=== PATIENT | male | born 1960 | race Hispanic/Latino ===

== ENCOUNTER 2017-04-26 11:47 | Inpatient (IN) | payer MEDICARE, OTHER ==
[2017-04-26] MEDS ORDERED: NACL BACTERIOSTATIC INFILTRATI ONE (13:55)
--- NOTE | 2017-04-26 14:41 | Anesthesia Day of Surgery ---
Anesthesia Day of Surgery - Day of Surgery Patient Examined: Yes Patient H&P Reviewed: Yes Patient is NPO: Yes
--- NOTE | 2017-04-26 14:41 | Anesthesia Consultation ---
Anesthesia Consult and Med Hx Date of service: 04/26/17 - Airway Anesthetic Teeth Evaluation: Poor ROM Head & Neck: Adequate Mental/Hyoid Distance: Adequate Mallampati Class: Class II Intubation Access Assessment: Probably Good - Pulmonary Exam CTA: Yes - Cardiac Exam Cardiac Exam: RRR - Pre-Operative Health Status ASA Pre-Surgery Classification: ASA3 Proposed Anesthetic Plan: General - Pulmonary Hx Smoking: No Hx Asthma: No COPD: Yes Hx Pneumonia: Yes (HOSPITALIZED IN 2013 AND 2014 FOR PNEUMONIA) Hx Sleep Apnea: No (PIOTR PRE SCREEN LOW RISK) - Cardiovascular System Hx Hypertension: No - Central Nervous System Hx Neuromuscular Disorder: Yes (cerebral palsy, severe contractures) Hx Seizures: Yes (NO MEDS AT PRESENT) Hx Psychiatric Problems: Yes - Endocrine Hx End Stage Renal Disease: No - Other Systems Hx Cancer: No
[2017-04-26] MEDS ORDERED: NACL 0.9% 1000 ML 1,000 ML ONE ×2 (14:46→16:46)
[2017-04-26] MEDS ORDERED: NACL 0.9% 1000 ML 1,000 ML IV SCH (15:00)
[2017-04-26] MEDS ORDERED: ANCEF/STERILE WATER 2 GM/20 ML IV NR (15:00)
[2017-04-26] MEDS ORDERED: XYLOCAINE MPF 2% ONE (15:27)
[2017-04-26] MEDS ORDERED: DIPRIVAN 10 MG/ML IV ONE (15:27)
[2017-04-26] MEDS ORDERED: DILAUDID ONE (15:29)
[2017-04-26] MEDS ORDERED: ePHEDrine SULFATE ONE ×2 (15:45→16:20)
[2017-04-26] MEDS ORDERED: WATER FOR IRRIG STERILE IR ONE (16:00)
[2017-04-26] MEDS ORDERED: OMNIPAQUE (300 MG) IR ONE (16:00)
[2017-04-26] MEDS ORDERED: ZOFRAN ONE (16:51)
--- NOTE | 2017-04-26 17:13 | Post Operative Note ---
Date of procedure: 04/26/17 Pre-op diagnosis: 1. Rt Renal Stones 2. Robin [place] 3. Lt Renal obstruction, pyonephrosis 4. NG Post-op diagnosis: same Findings: left hydro poor drain, rt hydro draining rt stones, trabec, eyrthema, bladder debris Procedure: Cystogram, robin rpg, robin stent L 6x26 R 6x24, bladder bx, cystogram Anesthesia: GETA Surgeon: IGGY HODGES Estimated blood loss: minimal Pathology: list (bl bx x3) Specimen disposition: to lab Condition: stable Disposition: PACU
[2017-04-26] MEDS ORDERED: TORADOL ONE (17:27)
[2017-04-26] MEDS ORDERED: DILAUDID IV PRN (17:28)
[2017-04-26] MEDS ORDERED: TORADOL IV PRN (17:28)
[2017-04-26] MEDS ORDERED: ZOFRAN IV PRN (17:28)
--- NOTE | 2017-04-26 17:47 | Post Anesthesia Evaluation ---
- Post Anesthesia Evaluation Patient Participated: Yes Airway Patent: Yes Stable Respiratory Function: Yes Nausea/Vomiting: No Temp > 96.8F: Yes Pain Manageable: Yes Adequeate Hydration: Yes Anesthesia Complications: No Block Receding Appropriately: Not Applicable Patient on Ventilator: No
[2017-04-26 18:03] LABS: Basophils % (Auto) 1.1 % (0.0-1.8); Eosinophils % (Auto) 4.6 % (0.0-4.3); Hematocrit 33.1 % (35.5-45.6); Hemoglobin 10.8 gm/dl (11.8-15.2); Mean Corpuscular HGB Conc 33 % (32-34); Mean Corpuscular Hemoglobin 30 pg (28-32); Mean Corpuscular Volume 91 fl (84-94); Platelet Count 186 K/mm3 (140-440); Red Blood Count 3.64 M/mm3 (3.65-5.03); Red Cell Distribution Width 15.1 % (13.2-15.2)
[2017-04-26 18:16] LABS: Anion Gap 16 mmol/L; Blood Urea Nitrogen 23 mg/dL (9-20); Calcium 8.4 mg/dL (8.4-10.2); Carbon Dioxide 24 mmol/L (22-30); Chloride 106.7 mmol/L (98-107); Glucose 116 mg/dL (75-100); Potassium 3.9 mmol/L (3.6-5.0); Sodium 143 mmol/L (137-145)
[2017-04-26] MEDS ORDERED: NORCO 5/325 PO PRN (18:44)
[2017-04-26] MEDS ORDERED: ceFAZolin 1 GM in NACL 0.9% 100 ML IV ONE (18:44)
[2017-04-26] MEDS ORDERED: LACTATED RINGERS 1,000 ML ONE (19:12)
[2017-04-26] MEDS ORDERED: LACTATED RINGERS 1,000 ML IV SCH (19:30)
[2017-04-26] MEDS ORDERED: ANCEF/NS 1 GM/50 ML 1 GM/50 ML BAG IV ONE (23:00)
--- NOTE | 2017-04-27 00:13 | Consultation ---
History of Present Illness - Reason for Consult Consult date: 04/27/17 Medical management Requesting physician: IGGY HODGES - History of Present Illness 56 y/o male with robin RPG Robin stent for bilateral renal stones and Hydronrphrosis admitted for L Pyoneohrosis and Abx therapy.Post op doing well. Patient also had bladder biopsy and cystogram. Past History Past Medical History: other (Allergic Rhinitis Depression) Past Surgical History: Other (Robin RPG with stent placement) Social history: lives with family, smoking Family history: hypertension Medications and Allergies Allergies Allergy/AdvReac Type Severity Reaction Status Date / Time corn Allergy Diarrhea Verified 06/20/15 21:45 grape Allergy Unknown Verified 06/20/15 21:45 coconuts Allergy Diarrhea Uncoded 06/20/15 21:45 nuts Allergy Diarrhea Uncoded 06/20/15 21:45 raisins Allergy Diarrhea Uncoded 06/20/15 21:45 Home Medications Medication Instructions Recorded Confirmed Last Taken Type FLUoxetine [PROzac] 10 mg PO QDAY 10/27/14 04/18/17 04/26/17 07:15 History Fluticasone [Flonase] 2 spray NS QDAY 10/27/14 04/18/17 04/26/17 07:15 History [place]-3 Fatty Acids/Fish Oil [Fish 3 each PO DAILY 10/27/14 04/18/17 04/26/17 07 :15 History Oil 1,000 mg Softgel] Thioridazine [Mellaril] 100 mg PO TID 10/27/14 04/18/17 04/26/17 07:15 History Replesta 1 dose PO QMONTH 04/18/17 04/18/17 04/26/17 07:15 History Cefuroxime Axetil [Ceftin] 500 mg PO Q12H 04/26/17 04/26/17 04/26/17 05:15 History Fexofenadine HCl 180 mg PO QDAY 04/26/17 04/26/17 04/26/17 07:15 History Active Meds: Active Medications Acetaminophen/Hydrocodone Bitart ([place]iza 5/325) 1 each PO Q4H PRN PRN Reason: Pain, Moderate (4-6) Cefazolin Sodium (Ancef/Sterile Water 2 Gm/20 Ml) 2 gm IV PREOP NR Stop: 04/27/17 14:59 Fluticasone Propionate (Flonase) 50 mcg NS QDAY ARELY Sodium Chloride (Nacl 0.9% 1000 Ml) 1,000 mls @ 100 mls/hr IV DIRECT ARELY Last Admin: 04/26/17 14:51 Dose: 100 mls/hr Lactated Ringer's (Lactated Ringers) 1,000 mls @ 125 mls/hr IV DIRECT ARELY Last Admin: 04/26/17 23:00 Dose: 125 mls/hr Miscellaneous Medication (Fexofenadine Hcl [Fexofenadine Hcl]) 180 mg PO QDAY AREYL Thioridazine HCl (Mellaril) 100 mg PO TID ARELY Review of Systems All systems: negative Exam - Constitutional Vitals: Temp Pulse Resp BP Pulse Ox 98.2 F 83 18 107/55 95 04/26/17 20:21 04/26/17 20:21 04/26/17 20:21 04/26/17 20:21 04/26/17 20:21 General appearance: Present: no acute distress, well-nourished - EENT Eyes: Present: PERRL ENT: hearing intact, clear oral mucosa - Neck Neck: Present: supple, normal ROM - Respiratory Respiratory effort: normal Respiratory: bilateral: CTA - Cardiovascular Heart Sounds: Present: S1 & S2. Absent: rub, click - Extremities Extremities: pulses symmetrical, No edema Peripheral Pulses: within normal limits - Abdominal General gastrointestinal: Present: soft, non-tender, non-distended, normal bowel sounds Male genitourinary: Present: normal - Integumentary Integumentary: Present: clear, warm, dry - Musculoskeletal Musculoskeletal: gait normal, strength equal bilaterally - Psychiatric Psychiatric: appropriate mood/affect, intact judgment & insight - Neurologic Neurologic: CNII-XII intact, moves all extremities Results - Labs CBC & Chem 7: 04/26/17 17:40 04/26/17 17:40 Labs: Abnormal lab results 04/26/17 04/26/17 Range/Units 17:40 17:40 RBC 3.64 L (3.65-5.03) M/mm3 Hgb 10.8 L (11.8-15.2) gm/dl Hct 33.1 L (35.5-45.6) % Lymph % (Auto) 39.1 H (13.4-35.0) % [place] % (Auto) 14.6 H (0.0-7.3) % Eos % (Auto) 4.6 H (0.0-4.3) % BUN 23 H (9-20) mg/dL Glucose 116 H (75-100) mg/dL Assessment and Plan - Patient Problems (1) Acute pyonephrosis Current Visit: Yes Status: Acute Plan to address problem: IV abx for now pending cultures (2) Allergic rhinitis Current Visit: Yes Status: Chronic Qualifiers: Chronicity: chronic Allergic rhinitis trigger: A Allergic rhinitis seasonality: A Plan to address problem: Cont Fexofenadine and Fluticasone (3) Depression Current Visit: Yes Status: Chronic Qualifiers: Depression Type: unspecified Major depression recurrence: M Active/ Remission status: A Major depression episode severity: M Psychotic features : P Trimester: T Qualified Code(s): F32.9 - Major depressive disorder, single episode, unspecified Plan to address problem: Cont Fluoxerine and Melleril (4) DVT prophylaxis Current Visit: Yes Status: Acute Plan to address problem: Lovenox 40 mg SQ qd
--- NOTE | 2017-04-27 08:25 | Admit Criteria Form ---
Admission Criteria Documentation: UROLOGIC DISEASE G Clinical Indications for Admission to Inpatient Care (Place ' X' for any and all applicable criteria): Hospital admission is needed for appropriate care of the patient because of 1 or more of the following: [ ]I. New-onset Reduced urine output, or hydronephrosis remaining after emergency or observation level care (as appropriate ) [ ]II. Renal disease needing inpatient care indicated by 1 or more of the following(2)(3)(4): [ ]a) Acute renal failure [ ]b) Significant uremic complications [ ]c) Acute kidney injury (that does not qualify as Acute renal failure ) requiring inpatient care indicated by ALL of the following(5)(6)(7)(8) (9): [ ]i) Worsening clinical status (eg, rising creatinine) despite outpatient and observation care treatment (eg, hydration) [ ]ii) Acute kidney injury indicated by 1 or more of the following: [ ]1) 2-fold or more rise in serum creatinine from baseline [ ]2) Reduction of more than 50% in estimated glomerular filtration rate from baseline [ ]3) Urine output less than 0.5 mL/kg/hr for 12 hours despite adequate volume status [ ]d) Systemic cause (eg, Goodpasture syndrome ) needing inpatient care [ ]e) Rapidly progressive renal disease needing inpatient care (eg, plasmapheresis, immunosuppression ) Anasarca needing inpatient care [ ]f) Hemoptysis [ ]g) Hemolysis, thrombosis, or infraction [ ]h) Anasarca needing inpatient care [ ]III. New-onset or uncontrolled nephrogenic diabetes insipidus [ ]IV. Urologic infection requiring inpatient care as indicated by 1 or more of the following(10)(11)(12): [ ]a) Hemodynamic instability [ ]b) Dehydration that is severe or persistent [ ]c) Failure of outpatient treatment [ ]d) Viktoriya's gangrene [ ]e) Urinary obstruction [ ]f) Immunocompromised state (eg, chronic steroid use ) [ ]g) Known renal or urologic abnormalities(eg, indwelling catheter, structural abnormalities ) [ ]h) Recent urologic manipulation or procedure Urinary obstruction [ ]i) Abscess requiring drainage Immunocompromised state [ ]V. Acute urinary retention requiring inpatient management as indicated by ANY ONE of the following(1)(13): [ ]a) Retention cannot be alleviated via emergency or observation level care (eg, urinary catheter placement) [ ]b) Hemodynamic instability [ ]c) Acute neurologic etiology (eg, cauda equina) [ ]d) Dehydration or other complications not manageable with emergency or observation level care [ ]e) Acute kidney injury (that does not qualify as Acute renal failure ) requiring inpatient care indicated by ALL of the following(5)(6)(7)(8) (9): [ ]i) Acute kidney injury indicated by ANY ONE of the following: [ ]1) 2-fold or more rise in serum creatinine from baseline [ ]2) Reduction of more than 50% in estimated glomerular filtration rate from baseline [ ]ii) Worsening clinical status (eg, rising creatinine) despite outpatient and observation care treatment (eg, hydration) [ ]. Gross hematuria requiring inpatient management as indicated by ANY ONE of the following(1)(2): [ ]a) Evidence of renal obstruction [ ]b) Reduced urine output [ ]c) Clot retention after urinary catheterization and irrigation [ ]d) Severe Anemia [ ]e) Systemic cause needing inpatient treatment (eg, Goodpasture syndrome) [ ]VII. Priapism not responsive to emergency or observation care treatment [ ]VII. Scrotal, testicular, or epididymal disorder requiring inpatient care indicated by 1 or more of the following(1)(14)(15)(16): [ ]a) Scrotal edema or infection not manageable with emergency or observation level care [ ]b) Orchitis not manageable with emergency or observation level care [ ]c) Epididymitis not manageable with emergency or observation level of care [ ]d) Other scrotal, testicular, or epididymal disorder (eg, infection, inflammation) not manageable with emergency or observation level care [ ]IX. Complications of transplanted kidney indicated by 1 or more of the following [ ]a) Acute graft rejection requiring inpatient management (eg, intravenous immunosuppression) [ ]b) Acute kidney injury indicated by ALL of the following i) Acute kidney injury indicated by 1 or more of the following 1) 2-fold or more rise in serum creatinine from baseline 2) Reduction of more than 50% in estimated glomerular filtration rate from baseline 3) Urine output less than 0.5 mL/kg/hr for 12 hours despite adequate volume status ii) Kidney injury too severe or not responsive to outpatient and observation care treatment (eg, hydration) [ ]c) Infection requiring inpatient management (eg, Hemodynamic instability, need for intravenous antimicrobial treatment) [ ]d) Other complication of transplanted kidney requiring patient management (eg, severe diarrhea leading to malabsorption) [ ]X. Trauma to renal, genital, or urologic system requiring inpatient medical care [X ]XI. Urologic Disease condition, symptom, or finding for which emergency and observation care have failed or are not considered appropriate. The original [employer] content created by [employer] has been revised. The portions of the content which have been revised are identified through the use of italic text or in bold, and [facility] has neither reviewed nor approved the modified material. All other unmodified content is copyright [facility] [employer]. Please see references footnoted in the original [facility] [employer] edition 2016 Admission Criteria Met: Yes
[2017-04-27] MEDS ORDERED: NON-FORMULARY (Fexofenadine Hcl [Fexofenadine Hcl] 180 MG) PO SCH (10:00)
--- NOTE | 2017-04-27 10:57 | Fluoroscopy Report ---
FLUOROSCOPY RETROGRADE UROGRAPHY FLUOROSCOPY CYSTOGRAM STATIC, ONE VIEW History: Bilateral hydronephrosis, right renal stone. Findings: Fluoroscopy was provided by radiology during retrograde urography by urology. 16 fluoroscopic images were captured. Retrograde pyelogram images demonstrate mild to moderate bilateral hydronephrosis. Subsequent images demonstrate placement of bilateral ureteral stents which adequately drain the renal collecting systems. Single view of the bladder was also obtained after infusion of contrast agent. There is mild bladder wall trabeculation but no obvious mass or filling defect. Impression: Bilateral hydronephrosis with subsequent bilateral ureteral stent placement. Mild bladder trabeculation. Please correlate with the procedural report by Dr. Salmeron.
[2017-04-27] MEDS: FLONASE NS SCH (11:13)
[2017-04-27] MEDS: MELLARIL PO SCH ×3 (11:33→19:48)
[2017-04-28] MEDS: FLONASE NS SCH (09:36)
[2017-04-28] MEDS: MELLARIL PO SCH ×3 (09:38→14:18)
[2017-04-28] MEDS ORDERED: CLARITIN PO SCH (13:00)
--- NOTE | 2017-04-28 13:57 | Progress Note ---
Assessment and Plan - Patient Problems (1) Acute pyonephrosis Current Visit: Yes Status: Acute Plan to address problem: IV abx for now pending cultures (2) Allergic rhinitis Current Visit: Yes Status: Chronic Qualifiers: Chronicity: chronic Allergic rhinitis trigger: A Allergic rhinitis seasonality: A Plan to address problem: Cont Fexofenadine and Fluticasone (3) Depression Current Visit: Yes Status: Chronic Qualifiers: Depression Type: unspecified Major depression recurrence: M Active/ Remission status: A Major depression episode severity: M Psychotic features : P Trimester: T Qualified Code(s): F32.9 - Major depressive disorder, single episode, unspecified Plan to address problem: Cont Fluoxerine and Melleril (4) DVT prophylaxis Current Visit: Yes Status: Acute Plan to address problem: Lovenox 40 mg SQ qd History Interval history: Doing better Hospitalist Physical - Constitutional Vitals: Temp Pulse Resp BP Pulse Ox 99.4 F 72 18 109/61 98 04/28/17 08:00 04/28/17 08:00 04/28/17 08:00 04/28/17 08:00 04/28/17 08:00 General appearance: Present: no acute distress, well-nourished - EENT Eyes: Present: PERRL, EOM intact - Neck Neck: Present: supple, normal ROM - Respiratory Respiratory: bilateral: CTA - Cardiovascular Heart rate: 76 Rhythm: regular - Extremities Extremities: no ischemia, pulses intact, pulses symmetrical - Abdominal General gastrointestinal: soft, non-tender, non-distended - Integumentary Integumentary: Present: clear, warm, dry - Psychiatric Psychiatric: appropriate mood/affect, cooperative - Neurologic Neurologic: CNII-XII intact, moves all extremities - Allied Health Allied health notes reviewed: nursing, case management Results - Labs CBC & Chem 7: 04/26/17 17:40 04/26/17 17:40 Labs: Laboratory Last Values WBC 5.0 K/mm3 (4.5-11.0) 04/26/17 17:40 RBC 3.64 M/mm3 (3.65-5.03) L 04/26/17 17:40 Hgb 10.8 gm/dl (11.8-15.2) L 04/26/17 17:40 Hct 33.1 % (35.5-45.6) L 04/26/17 17:40 MCV 91 fl (84-94) 04/26/17 17:40 MCH 30 pg (28-32) 04/26/17 17:40 MCHC 33 % (32-34) 04/26/17 17:40 RDW 15.1 % (13.2-15.2) 04/26/17 17:40 Plt Count 186 K/mm3 (140-440) 04/26/17 17:40 Lymph % (Auto) 39.1 % (13.4-35.0) H 04/26/17 17:40 [place] % (Auto) 14.6 % (0.0-7.3) H 04/26/17 17:40 Eos % (Auto) 4.6 % (0.0-4.3) H 04/26/17 17:40 Baso % (Auto) 1.1 % (0.0-1.8) 04/26/17 17:40 Lymph # 1.9 K/mm3 (1.2-5.4) 04/26/17 17:40 [place] # 0.7 K/mm3 (0.0-0.8) 04/26/17 17:40 Eos # 0.2 K/mm3 (0.0-0.4) 04/26/17 17:40 Baso # 0.1 K/mm3 (0.0-0.1) 04/26/17 17:40 Seg Neutrophils % 40.6 % (40.0-70.0) 04/26/17 17:40 Seg Neutrophils # 2.0 K/mm3 (1.8-7.7) 04/26/17 17:40 Sodium 143 mmol/L (137-145) 04/26/17 17:40 Potassium 3.9 mmol/L (3.6-5.0) 04/26/17 17:40 Chloride 106.7 mmol/L (98-107) 04/26/17 17:40 Carbon Dioxide 24 mmol/L (22-30) 04/26/17 17:40 Anion Gap 16 mmol/L 04/26/17 17:40 BUN 23 mg/dL (9-20) H 04/26/17 17:40 Creatinine 1.0 mg/dL (0.8-1.5) 04/26/17 17:40 Estimated GFR > 60 ml/min 04/26/17 17:40 BUN/Creatinine Ratio 23.00 % 04/26/17 17:40 Glucose 116 mg/dL (75-100) H 04/26/17 17:40 Calcium 8.4 mg/dL (8.4-10.2) 04/26/17 17:40
[2017-04-28] MEDS ORDERED: ROCEPHIN/NS 2 GM/100 ML 2 GM/100 ML BAG IV SCH (14:00)
[2017-04-28] MEDS ORDERED: ROCEPHIN/NS 1 GM/50 ML 1 GM/50 ML BAG IV SCH (15:00)
--- NOTE | 2017-04-28 16:03 | Event Note ---
Date: 04/28/17 S: pt void Gen nad abd soft I/P: [facility]ad[facility] abn / Rad Lt [place] Infect hydro Robin Renal stones Lt [place] / ost - admitted due risk of fever after proc w/ manip and pt limited ability to communicate signs / sxs of infec - afebrile - D/C planning back to [facility] home next 24 hrs if ok; if Ok w/ Med
[2017-04-28] MEDS ORDERED: XYLOCAINE 1% MPF 5 mL INFILTRATI ONE (16:06)
[2017-04-28] MEDS ORDERED: ROCEPHIN IM ONE (16:10)
[2017-04-28 17:30] VITALS: BP 118/71
--- NOTE | 2017-04-28 19:59 | Event Note ---
Date: 04/28/17
== END 2017-04-28 21:24 | disposition home or self-care (01) | DRG 669 ==
LOC: OR 11:47 → 2B-SURG 18:30 → OBSVTOIN 04-28 10:40
PROVIDERS: ADMIT Urology; ATTEND Urology
PROC: 0T788DZ Dilation of Bilateral Ureters with Intraluminal Device, Via Natural or Artificial Opening Endoscopic (ICD-10-PCS; principal; 2017-04-26)
PROC: 0TBB8ZX Excision of Bladder, Via Natural or Artificial Opening Endoscopic, Diagnostic (ICD-10-PCS; 2017-04-26)
DX: N13.6 Pyonephrosis (principal); N20.2 Calculus of kidney with calculus of ureter; J44.9 Chronic obstructive pulmonary disease, unspecified; G80.9 Cerebral palsy, unspecified; R56.9 Unspecified convulsions; J30.89 Other allergic rhinitis; F32.9 Major depressive disorder, single episode, unspecified; Z82.49 Family history of ischemic heart disease and other diseases of the circulatory system; Z91.018 Allergy to other foods; Z91.048 Other nonmedicinal substance allergy status; Z79.899 Other long term (current) drug therapy
CPT/HCPCS: 36415; 74420; 74430; 80048; 85025; 88305; A4217; C1758; C1769; C2617; G0378; G8978-GP; G8979-GP; J0690; J0696; J1170; J1885; J2405; J2704; J7030; J7120; Q9967

== ENCOUNTER 2017-06-02 07:40 | Day surgery (SDC) | payer MEDICARE, OTHER ==
[2017-06-02] MEDS ORDERED: ZOFRAN ONE (10:07)
[2017-06-02] MEDS ORDERED: DECADRON ONE (10:07)
[2017-06-02] MEDS ORDERED: DIPRIVAN 10 MG/ML IV ONE (10:07)
[2017-06-02] MEDS ORDERED: XYLOCAINE MPF 2% ONE (10:07)
--- NOTE | 2017-06-02 10:12 | Short Stay Summary ---
Short Stay Documentation Date of service: 06/02/17 - History H&P: obtained from office - Allergies and Medications Current Medications: Allergies corn Allergy (Verified 05/24/17 09:54) Diarrhea INCLUDING GRITS. grape Allergy (Verified 06/20/15 21:45) Unknown coconuts Allergy (Uncoded 06/20/15 21:45) Diarrhea nuts Allergy (Uncoded 05/24/17 09:54) Diarrhea INCLUDING PEANUT BUTTER raisins Allergy (Uncoded 06/20/15 21:45) Diarrhea Home Medications Medication Instructions Recorded Confirmed Last Taken Type FLUoxetine [PROzac] 40 mg PO QDAY 10/27/14 06/02/17 06/01/17 History Fluticasone [Flonase] 2 spray NS QDAY 10/27/14 06/02/17 06/01/17 History [place]-3 Fatty Acids/Fish Oil [Fish 1,000 mg PO DAILY 10/27/14 06/02/17 06/01/17 History Oil 1,000 mg Softgel] Thioridazine [Mellaril] 100 mg PO BID 10/27/14 06/02/17 06/01/17 History Replesta 1 dose PO QWEEK 04/18/17 06/02/17 05/29/17 History Fexofenadine HCl 180 mg PO QDAY 04/26/17 06/02/17 06/01/17 History - Brief post op/procedure progress note Date of procedure: 06/02/17 Pre-op diagnosis: rt renal stones upper mid and lower Post-op diagnosis: same Procedure: right renal eswl of the renal pelvis stone, staged for future ESWL Anesthesia: GETA Findings: good vis, central, decednt frag Surgeon: IGGY HODGES Estimated blood loss: none Pathology: none Condition: stable - Hospital course Hospital course: or pacu home - Disposition Condition at discharge: Good Disposition: DC-01 TO HOME OR SELFCARE Short Stay Discharge Plan Activity: advance as tolerated Diet: advance as tolerated Follow up with: IGGY HODGES MD [Staff Physician] - 7 Days
[2017-06-02] MEDS ORDERED: NACL BACTERIOSTATIC INFILTRATI ONE (10:17)
--- NOTE | 2017-06-02 10:17 | Anesthesia Consultation ---
Anesthesia Consult and Med Hx Date of service: 06/02/17 - Airway Anesthetic Teeth Evaluation: Poor ROM Head & Neck: Adequate Mental/Hyoid Distance: Adequate Mallampati Class: Class III Intubation Access Assessment: Probably Good - Pulmonary Exam CTA: Yes - Cardiac Exam Cardiac Exam: RRR - Pre-Operative Health Status ASA Pre-Surgery Classification: ASA3 Proposed Anesthetic Plan: General - Pulmonary Hx Smoking: No Hx Asthma: No Hx Respiratory Symptoms: No SOB: No COPD: Yes Home Oxygen Therapy: No Hx Pneumonia: Yes (HOSPITALIZED IN 2013 AND 2014 FOR PNEUMONIA) Hx Sleep Apnea: No (PIOTR PRE SCREEN LOW RISK) - Cardiovascular System Hx Hypertension: No Hx Coronary Artery Disease: No Hx Heart Attack/AMI: No Hx Angina: No - Central Nervous System Hx Neuromuscular Disorder: Yes (cerebral palsy, severe contractures) Hx Seizures: Yes (NO MEDS AT PRESENT) Hx Psychiatric Problems: Yes - Endocrine Hx Renal Disease: Yes (kidney stones) Hx End Stage Renal Disease: No Hx Cirrhosis: No Hx Liver Disease: No Hx Insulin Dependent Diabetes: No Hx Non-Insulin Dependent Diabetes: No Hx Thyroid Disease: No Hx Hypothyroidism: No Hx Hyperthyroidism: No - Hematic Hx Anemia: Yes - Other Systems Hx Alcohol Use: No Hx Substance Use: No Hx Cancer: No
[2017-06-02] MEDS ORDERED: ePHEDrine SULFATE ONE (10:23)
[2017-06-02] MEDS ORDERED: NACL 0.9% 1000 ML 1,000 ML IV SCH (11:00)
[2017-06-02] MEDS ORDERED: ANCEF/STERILE WATER 2 GM/20 ML IV NR (11:00)
[2017-06-02] MEDS ORDERED: ROCEPHIN/NS 1 GM/50 ML 1 GM/50 ML BAG IV SCH (11:00)
[2017-06-02] MEDS ORDERED: VERSED IV NR (11:00)
--- NOTE | 2017-06-02 15:26 | Operative Report ---
PREOPERATIVE DIAGNOSES: 1. Right cerebral palsy. 2. Lower extremity contractures. 3. Right renal stones, large, multiple lower pole, upper pole and renal pelvis. 4. Bilateral left hydronephrosis and bilateral stents. POSTOPERATIVE DIAGNOSES: 1. Right cerebral palsy. 2. Lower extremity contractures. 3. Right renal stones, large, multiple lower pole, upper pole and renal pelvis. 4. Bilateral left hydronephrosis and bilateral stents. PROCEDURE: Right renal pelvis ESWL, surgery staged for future treatment of this one central large stone, additionally staged for future treatment of the other renal stones and staged for future treatment and removal of stent, expected multiple procedures. SURGEON: Joseph Salmeron MD ANESTHESIA: General. SPECIMENS: None. ESTIMATED BLOOD LOSS: Minimal. COMPLICATIONS: None. IMPLANTS: None. CLINICAL INDICATIONS: The patient and family and caretakers have been counseled about the multiple different procedures in stages, had been counseled on percutaneous nephrolithotomy, but they would be unable to manage the tube and the patient unable to tolerate or cooperate with the access. 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 Consent was obtained and the plan was, he had a large stone in the lower pole, large upper pole and a renal pelvis stone. They were separate, so even a percutaneous access may only be able to access a portion of the stone and due to the separation in the separate stones in separate areas of the kidney. It was elected due to all these complicating factors and the patient's cerebral palsy, to go ahead and try to treat the central renal pelvis stone, which is most likely to cause problems first and staged treatment for other stones in the future. This was understood and they also understood the options of open surgery, percutaneous nephrolithotomy, other surgeries and ureteroscopy and desired to proceed with this approach. DESCRIPTION OF PROCEDURE: The patient was transferred to OR suite in supine position, antibiotics, SCDs. Biplanar fluoroscopy easily targeted the central large stone in the renal pelvis. Other stones were identified in the large lower pole, upper pole. A total of 2500 shocks were delivered at a maximum of 5 kilovolts. Biplanar fluoroscopy was used to target the stone with an F2. There was decreased density at the end of the procedure and better than expected results due to the size of the stone and location by appearance at this point. At the end of the procedure, the residual as not unexpected that due to large size stone, he would likely need a staged second ESWL. The patient was awakened and transferred to PACU in good and stable condition. JOB# [id number] ATS/NTS
[2017-06-02 18:29] VITALS: BP 119/76
== END 2017-06-02 13:40 | disposition home or self-care (01) ==
LOC: OR 07:40
PROVIDERS: ATTEND Urology
DX: N13.2 Hydronephrosis with renal and ureteral calculous obstruction (principal); G80.9 Cerebral palsy, unspecified; M62.469 Contracture of muscle, unspecified lower leg; Z91.018 Allergy to other foods
CPT/HCPCS: 50590; J0696; J1100; J2250; J2405; J2704; J7030

== ENCOUNTER 2022-06-02 14:39 | Emergency (ER) | payer MEDICARE, OTHER ==
[2022-06-02] MEDS ORDERED: guaiFENesin/CODEINE 100-10MG ORAL LIQD 5 ML PO ONE (18:38)
[2022-06-02] MEDS ORDERED: IPRATROPIUM/ALBUTEROL SULFATE 3 ML AMPUL.NEB IH ONE (18:40)
--- NOTE | 2022-06-02 19:17 | XRay Report ---
CHEST 1 VIEW INDICATION / CLINICAL INFORMATION: cough. COMPARISON: 08/29/2017 FINDINGS: SUPPORT DEVICES: None. HEART / MEDIASTINUM: No significant abnormality. LUNGS / PLEURA: Elevated right hemidiaphragm. Mild patchy left-sided parenchymal disease suggestive f or pneumonia No pneumothorax. ADDITIONAL FINDINGS: No significant additional findings. IMPRESSION: 1. Probable left-sided pneumonia. Signer Name: Aaron Koroma MD Signed: 06/02/2022 7:12 PM Workstation Name: [id number]
--- NOTE | 2022-06-02 19:21 | Emergency Department Report ---
ED General Adult HPI - General Chief complaint: Upper Respiratory Infection Stated complaint: COUGH/UPPER RESP INFECTION Time Seen by Provider: 06/02/22 18:12 Source: patient, EMS Mode of arrival: Stretcher Limitations: Physical Limitation - History of Present Illness Initial comments: The patient presents to the emergency department for evaluation of a cough. Patient has cerebral palsy and has had a cough for the last couple of days. Patient denies having a fever. There is no chest pain, abdominal pain, headache. -: unknown Severity scale (0 -10): 0 Consistency: constant Improves with: none Worsens with: none Associated Symptoms: denies other symptoms Treatments Prior to Arrival: none - Related Data Home Medications Medication Instructions Recorded Confirmed Last Taken Taylor-3 Fatty Acids/Fish Oil [Fish 1,000 mg PO DAILY 10/27/14 08/30/17 06/01/17 Oil 1,000 mg Softgel] Thioridazine [Mellaril] 100 mg PO BID 10/27/14 08/30/17 06/01/17 Replesta 1 dose PO QWEEK 04/18/17 08/30/17 05/29/17 FLUoxetine HCL [PROzac] 40 mg PO DAILY 08/30/17 08/30/17 Unknown Fluticasone [Flonase] 1 puff IH PRN PRN 08/30/17 08/30/17 Unknown Loratadine [Allergy Relief] 10 mg PO DAILY 08/30/17 08/30/17 Unknown Mag Hydrox/Aluminum Hyd/Simeth 10 ml PO Q4-6H PRN 08/30/17 08/30/17 Unknown [Rosario-[place] Liquid] Magnesium Hydroxide [Milk of 30 - 60 ml PO PRN PRN 08/30/17 08/30/17 Unknown Magnesia] Ondansetron [Zofran TAB] 4 mg PO Q8HR PRN 08/30/17 08/30/17 Unknown diphenhydrAMINE [Benadryl CAP] 25 mg PO Q8HR PRN 08/30/17 08/30/17 Unknown levETIRAcetam [Levetiracetam] 500 mg PO BID 08/30/17 08/30/17 Unknown Previous Rx's Medication Instructions Recorded Last Taken Type HYDROcodone/APAP 5-325 [[place] 1 each PO Q4HR PRN #14 tablet 09/02/17 Unknown Rx 5-325 mg TAB] Tamsulosin [Flomax] 0.4 mg PO BID #60 capsule 09/02/17 Unknown Rx cephALEXin [Keflex] 500 mg PO BID #10 capsule 09/02/17 Unknown Rx Albuterol Mdi (or & Nicu Only) 2 puff IH Q4HR PRN #1 inhalation 06/02/22 Unknown Rx [ProAir HFA Inhaler] Benzonatate [Tessalon Perles] 100 mg PO Q8HR PRN #20 capsule 06/02/22 Unknown Rx Doxycycline Monohydrate 100 mg PO BID #14 capsule 06/02/22 Unknown Rx [Doxycycline Monohydrate CAP] Allergies Allergy/AdvReac Type Severity Reaction Status Date / Time corn Allergy Diarrhea Verified 06/02/22 14:50 grape Allergy Unknown Verified 06/02/22 14:50 coconuts Allergy Diarrhea Uncoded 06/02/22 14:50 nuts Allergy Diarrhea Uncoded 06/02/22 14:50 raisins Allergy Diarrhea Uncoded 06/02/22 14:50 ED Review of Systems ROS: Stated complaint: COUGH/UPPER RESP INFECTION Other details as noted in HPI Comment: All other systems reviewed and negative Constitutional: denies: chills, fever Eyes: denies: eye pain, eye discharge, vision change ENT: denies: ear pain, throat pain Respiratory: cough. denies: shortness of breath, wheezing Cardiovascular: denies: chest pain, palpitations Endocrine: no symptoms reported Gastrointestinal: denies: abdominal pain, nausea, diarrhea Genitourinary: denies: urgency, dysuria Musculoskeletal: denies: back pain, joint swelling, arthralgia Skin: denies: rash, lesions Neurological: denies: headache, weakness, paresthesias Psychiatric: denies: anxiety, depression Hematological/Lymphatic: denies: easy bleeding, easy bruising ED Past Medical Hx - Past Medical History Previous Medical History?: Yes Hx Hypertension: No Hx Heart Attack/AMI: No Hx Congestive Heart Failure: No Hx Diabetes: No Hx Liver Disease: No Hx Renal Disease: Yes (UTI, Ureteral obstruction) Hx Seizures: Yes (NO MEDS) Hx Kidney Stones: Yes Hx Asthma: No Hx COPD: Yes (NO MEDS) Hx HIV: No Additional medical history: mental retardation. cerebral palsy,PNEUMONIA 2013 - Surgical History Past Surgical History?: Yes Additional Surgical History: removed KIDNEY STONE - Social History Smoking Status: Never Smoker Substance Use Type: None - Medications Home Medications: Home Medications Medication Instructions Recorded Confirmed Last Taken Type Taylor-3 Fatty Acids/Fish Oil [Fish 1,000 mg PO DAILY 10/27/14 08/30/17 06/01/17 History Oil 1,000 mg Softgel] Thioridazine [Mellaril] 100 mg PO BID 10/27/14 08/30/17 06/01/17 History Replesta 1 dose PO QWEEK 04/18/17 08/30/17 05/29/17 History FLUoxetine HCL [PROzac] 40 mg PO DAILY 08/30/17 08/30/17 Unknown History Fluticasone [Flonase] 1 puff IH PRN PRN 08/30/17 08/30/17 Unknown History Loratadine [Allergy Relief] 10 mg PO DAILY 08/30/17 08/30/17 Unknown History Mag Hydrox/Aluminum Hyd/Simeth 10 ml PO Q4-6H PRN 08/30/17 08/30/17 Unknown History [Rosario-[place] Liquid] Magnesium Hydroxide [Milk of 30 - 60 ml PO PRN PRN 08/30/17 08/30/17 Unknown History Magnesia] Ondansetron [Zofran TAB] 4 mg PO Q8HR PRN 08/30/17 08/30/17 Unknown History diphenhydrAMINE [Benadryl CAP] 25 mg PO Q8HR PRN 08/30/17 08/30/17 Unknown History levETIRAcetam [Levetiracetam] 500 mg PO BID 08/30/17 08/30/17 Unknown History HYDROcodone/APAP 5-325 [[place] 1 each PO Q4HR PRN #14 tablet 09/02/17 Unknown Rx 5-325 mg TAB] Tamsulosin [Flomax] 0.4 mg PO BID #60 capsule 09/02/17 Unknown Rx cephALEXin [Keflex] 500 mg PO BID #10 capsule 09/02/17 Unknown Rx Albuterol Mdi (or & Nicu Only) 2 puff IH Q4HR PRN #1 inhalation 06/02/22 Unknown Rx [ProAir HFA Inhaler] Benzonatate [Tessalon Perles] 100 mg PO Q8HR PRN #20 capsule 06/02/22 Unknown Rx Doxycycline Monohydrate 100 mg PO BID #14 capsule 06/02/22 Unknown Rx [Doxycycline Monohydrate CAP] ED Physical Exam - General Limitations: Physical Limitation General appearance: alert, in no apparent distress - Head Head exam: Present: atraumatic, normocephalic - Eye Eye exam: Present: normal appearance, PERRL, EOMI - ENT ENT exam: Present: mucous membranes moist - Neck Neck exam: Present: normal inspection - Respiratory Respiratory exam: Present: decreased breath sounds. Absent: respiratory distress - Cardiovascular Cardiovascular Exam: Present: regular rate, normal rhythm. Absent: systolic murmur, diastolic murmur, rubs, gallop - GI/Abdominal GI/Abdominal exam: Present: soft, normal bowel sounds. Absent: distended, tenderness - Rectal Rectal exam: Present: deferred - Extremities Exam Extremities exam: Present: normal inspection - Back Exam Back exam: Present: normal inspection - Neurological Exam Neurological exam: Present: alert, oriented X3 - Psychiatric Psychiatric exam: Present: normal affect, normal mood - Skin Skin exam: Present: warm, dry, intact, normal color. Absent: rash ED Course Vital Signs 06/02/22 06/02/22 14:44 15:55 Pulse Rate 78 Respiratory 18 Rate Blood Pressure 132/78 [Left] O2 Sat by Pulse 95 97 Oximetry ED Medical Decision Making - Lab Data Result diagrams: 06/02/22 18:45 06/02/22 18:45 Lab Results 06/02/22 06/02/22 Range/Units 18:45 18:45 WBC 10.0 (4.5-11.0) K/mm3 RBC 3.63 L (3.65-5.03) M/mm3 Hgb 10.3 L (11.8-15.2) gm/dl Hct 31.7 L (35.5-45.6) % MCV 88 (84-94) fl MCH 28 (28-32) pg MCHC 32 (32-34) % RDW 14.5 (13.2-15.2) % Plt Count 225 (140-440) K/mm3 Lymph % (Auto) 21.9 (13.4-35.0) % [place] % (Auto) 11.5 H (0.0-7.3) % Eos % (Auto) 3.3 (0.0-4.3) % Baso % (Auto) 0.6 (0.0-1.8) % Lymph # (Auto) 2.2 (1.2-5.4) K/mm3 [place] # (Auto) 1.1 H (0.0-0.8) K/mm3 Eos # (Auto) 0.3 (0.0-0.4) K/mm3 Baso # (Auto) 0.1 (0.0-0.1) K/mm3 Seg Neutrophils % 62.7 (40.0-70.0) % Seg Neutrophils # 6.3 (1.8-7.7) K/mm3 Sodium 130 L (137-145) mmol/L Potassium 4.8 (3.6-5.0) mmol/L Chloride 92.9 L (98-107) mmol/L Carbon Dioxide 26 (22-30) mmol/L Anion Gap 16 mmol/L BUN 32 H (9-20) mg/dL Creatinine 1.4 H (0.8-1.3) mg/dL Estimated GFR 52 ml/min BUN/Creatinine Ratio 23 % Glucose 82 (75-100) mg/dL Calcium 8.8 (8.4-10.2) mg/dL - Radiology Data Radiology results: report reviewed - Medical Decision Making Discussed results today Critical care attestation.: If time is entered above; I have spent that time in minutes in the direct care of this critically ill patient, excluding procedure time. ED Disposition Clinical Impression: Pneumonia Disposition: 01 HOME / SELF CARE / HOMELESS Is pt being admited?: No Does the pt Need Aspirin: No Condition: Stable Instructions: Bacterial Pneumonia (ED), Community-Acquired Pneumonia, Adult Additional Instructions: return if worse Referrals: JOON PANIAGUA MD [Primary Care Provider] - 3-5 Days Time of Disposition: 19:40
[2022-06-02 19:27] LABS: Calcium 8.8 mg/dL (8.4-10.2)
[2022-06-02 19:32] LABS: Basophils # (Auto) 0.1 K/mm3 (0.0-0.1); Basophils % (Auto) 0.6 % (0.0-1.8); Eosinophils # (Auto) 0.3 K/mm3 (0.0-0.4); Eosinophils % (Auto) 3.3 % (0.0-4.3); Hematocrit 31.7 % (35.5-45.6); Hemoglobin 10.3 gm/dl (11.8-15.2); Lymphocytes # (Auto) 2.2 K/mm3 (1.2-5.4); Lymphocytes % (Auto) 21.9 % (13.4-35.0); Mean Corpuscular HGB Conc 32 % (32-34); Mean Corpuscular Volume 88 fl (84-94); Monocytes # (Auto) 1.1 K/mm3 (0.0-0.8); Monocytes % (Auto) 11.5 % (0.0-7.3); Platelet Count 225 K/mm3 (140-440); Red Blood Count 3.63 M/mm3 (3.65-5.03); Red Cell Distribution Width 14.5 % (13.2-15.2)
[2022-06-02 23:11] VITALS: BP 135/78
== END 2022-06-02 22:00 | disposition home or self-care (01) ==
LOC: ED 14:39
DX: J18.9 Pneumonia, unspecified organism (principal); N28.9 Disorder of kidney and ureter, unspecified; N20.0 Calculus of kidney; R56.9 Unspecified convulsions; J44.1 Chronic obstructive pulmonary disease with (acute) exacerbation; Z91.02 Food additives allergy status; Z91.018 Allergy to other foods; Z91.09 Other allergy status, other than to drugs and biological substances
CPT/HCPCS: 36415; 71045; 80048; 85025; 94640; 94644; 99284